=== PATIENT | male | born 1960 | race Caucasian/White ===

== ENCOUNTER 2023-08-23 08:42 | Day surgery (SDC) | payer OTHER, SELFPAY ==
[2023-08-23 09:14] VITALS: BP 122/62; PULSE 62; RESP 16; TEMP 36.5; O2SAT 99
[2023-08-23] MEDS: Tropicam./Phenyleph. (1/2.5%) 5 ML BTL OD ×3 (09:26→09:36)
--- NOTE | 2023-08-23 09:29 | W.ANESPRE ---
General Info Date of Service Date Performed: 08/23/23 Height: 6 ft Weight: 90.8 kg Body Mass Index (BMI): 27.1 Surgical Procedure: Operation Date: 08/23/23 11:40 Proposed Procedure Side Surgeon p Cataract Extraction with IOL Implant Right Joaquín Erickson MD Meds Allergies and Home Medications Allergies Allergy/AdvReac Type Severity Reaction Status Date / Time No Known Allergies Allergy Unverified 08/22/23 15:25 Home Medication Medication Instructions Recorded albuterol sulfate 90 mcg/actuation 2 puff inhalation DIRECTED 08/22/23 aerosol inhaler atorvastatin 40 mg tablet 40 mg PO DAILY 08/22/23 buspirone 15 mg tablet 15 mg PO TID 08/22/23 cyanocobalamin (vitamin B-12) 1,000 mcg PO DAILY 08/22/23 1,000 mcg tablet fluoxetine 40 mg capsule 40 mg PO DAILY 08/22/23 trazodone 100 mg tablet 100 mg PO HS 08/22/23 Current Visit Medications: Current Medications Generic Name Dose Route Start Last Admin Trade Name Freq PRN Reason Stop Dose Admin Acetaminophen 1,000 mg 08/23/23 06:00 Acetaminophen 500 Mg Tab PO 09/22/23 05:59 Q4H PRN PRN Balanced Salt Solution 500 ml 08/23/23 06:00 Balanced Salt Soln.-Plus 500 Ml Bag OP 09/22/23 05:59 DIRECTED LAKEISHA Miscellaneous Medication 0 ml 08/23/23 06:00 Prednisolone 1%, Moxifloxacin 0.5%, Nepafenac 0.1% 5ml Btl OD 09/22/23 05:59 DIRECTED LAKEISHA Miscellaneous Medication 0 ml 08/23/23 06:00 Tropicam./Phenyleph. (1/2.5%) 5 Ml Btl OD 09/22/23 05:59 DIRECTED LAKEISHA Tetracaine HCl 0 ml 08/23/23 06:00 Tetracaine 0.5% 4 Ml Btl OD 09/22/23 05:59 DIRECTED LAKEISHA PFSH Active Problems Active Problems: Problem Status Onset Code Nuclear age-related cataract, right eye H25.11 Cortical age-related cataract, right eye H25.011 Medical History Medical History Anxiety Depression Insomnia Surgical History Surgical History (Updated 08/23/23 @ 09:08 by Orion Reich) History of back surgery Hx of foot surgery Hx of tonsillectomy Tobacco Smoking/Tobacco Use Status: Never Alcohol Alcohol Intake: current Alcohol intake frequency: holidays/special occasions only Substance Use Substance use: Daily Substance use type: marijuana Vital Signs and Lab Results Vital Signs Most Recent Vital Signs in EMR: Most Recent Vital Signs Temp Pulse Resp BP Pulse Ox 36.5 C 62 16 122/62 99 08/23/23 09:14 08/23/23 09:14 08/23/23 09:14 08/23/23 09:14 08/23/23 09:14 Lab Results Blood Type / Crossmatch: No Data to Display Complete Blood Count: No Data to Display Complete Metabolic Panel: No Data to Display Liver Function Panel: No Data to Display Coagulation Panel: No Data to Display Cardiac Panel: No Data to Display Arterial Blood Gas: No Data to Display Venous Blood Gas: No Data to Display Pancreas Panel: No Data to Display Thyroid Panel: No Data to Display Infectious Disease: No Data to Display Blood Cultures: No Data to Display Toxicology Panel: No Data to Display Anesthesia Assessment and Plan Anesthesia History Personal History: No History of Anesthesia Complications Family History: No Family History of Anesthesia Complications Exercise Tolerance Exercise Tolerance: Metabolic Equivalents>4 Pertinent Negatives Pertinent Negatives: No Symptoms of GERD, No Major Cardiovascular Symptoms or Complaints and No Major Pulmonary Symptoms or Complaints Cardiac & Pulmonary Exam Cardiac Exam: Normal S1/S2 Heart Sounds Pulmonary Exam: Clear Bilateral Breath Sounds Implantable Cardiac Device Does patient have a Pacemaker or an ICD?: No Airway Exam Known Difficult Airway: No Mallampati Class: 1 Mouth Opening: Normal (> 3cm) Thyromental Distance: Greater than 3 cm Neck Range of Motion: Full ROM Neck Circumference: Normal Teeth Condition: Normal Dentition ASA Classification ASA Score: ASA 2 Emergency Case?: No NPO Status NPO Status: NPO Clears >2 hours, Solids >8 hours Anesthesia Plan Resuscitation Status: Full Code Anesthesia Technique: MAC Anesthesia Airway Planned: Natural Airway Monitors Used: Standard Monitors
[2023-08-23 09:48] VITALS: BMI 27.1
--- NOTE | 2023-08-23 10:27 | ROE_ITS ---
Date of service: 08/23/23 Time of Service: 11:10 Operative Note Operative Note DATE OF PROCEDURE: 08/23/23 PRE-OP DIAGNOSIS: Nuclear/cortical cataract, right eye With the rule astigmatism, right eye POST-OP DIAGNOSIS: same PROCEDURE: Cataract extraction using phacoemulsification with toric intraocular lens implant, right eye SURGEON: Joaquín Erickson Refer to Anesthesia Record PATHOLOGY: none sent COMPLICATIONS: None Patient was transported to: same day Patient's condition: stable Implants: Eben and Eben Vision Tecnis Eyhance Toric Intraocular Lens Indications: Progressive decreased vision due to cataract, right eye, with corneal astigmatism Procedure Description: [] CATARACT SURGERY OPERATIVE REPORT PREOPERATIVE DIAGNOSIS: Nuclear/cortical cataract, right eye With the rule astigmatism, right eye POSTOPERATIVE DIAGNOSIS: Same OPERATION: Cataract extraction using phacoemulsification with posterior chamber toric intraocular lens implant, right eye. IOL: IOL Senior Database Programmer/Model: Eben and Eben Vision Tecnis Eyhance Toric [id number] IOL Power: + 20.5 diopters sphere, + 3.75 cylinder IOL Serial Number: [id number] Optic Diameter: 6.0mm Haptic/Overall Diameter: 13.00mm PHACO INFO: Miguel CytoValeurion Vision System with OZil and Active Fluidics Cumulative Dispersed Energy (CDE): 3.17 seconds SURGEON: Joaquín Erickson MD, CATA ANESTHESIA: Monitored Anesthesia Care (MAC), with local sub-tenon's anesthetic infiltration COMPLICATIONS: None SPECIMENS: None INDICATIONS FOR PROCEDURE: The patient is a 63-year-old male with history of with the rule astigmatism who has developed a significant nuclear/cortical cataract in the right eye. He jose miguel ired cataract surgery and attempt to improve and maximize his vision. The option of cataract surgery was offered to the patient and he wished to proceed. See office notes for detailed information. PROCEDURE: The correct surgical eye was identified and marked as the right eye and the pupil was dilated in the preoperative area using mydriatics and cycloplegics. The dilated pupil size was 7.0 mm. With the patient in the seated position, topical anesthetic was applied and a surgical marker was used to doris the limbus at 6:00. A Surgilum Robomarker was then used to doris the 0/180 degree reference axis. The patient elected to proceed without oral sedation. The patient was brought to the operating room where cardiopulmonary monitoring was instituted and surgical time-out was performed, confirming the correct operative eye and IOL power. Topical anesthesia was administered and ophthalmic povidone-iodine 5% was instilled into the conjunctival fornices. Lidocaine gel was applied to the cornea and the beth-ocular area was prepped with Betadine 10% solution and draped in the usual sterile fashion for intraocular surgery, including an aperture drape. A Tegaderm transparent film dressing was cut in half and used to cover the lashes and lid margins. Care was taken to sequester the lashes and lid margins under the Tegaderm dressing. A lid speculum was placed between the lids of the operative eye and the Abundio-Shane operating microscope was maneuvered into position. Jossie scissors were then used to make a conjunctival buttonhole approximately 6mm posterior to the limbus in the inferonasal quadrant. Blunt dissection was carried out to expose bare sclera, and a blunt-tipped sub-tenon?s anesthesia cannula was introduced and passed posteriorly along the globe where non- preserved plain lidocaine was injected into posterior sub-Tenon?s space. A corneal ring gauge and axis marker were then used to doris the 174 degree position for the main phaco incision.and the 83/263 degree axis for alignment of the toric IOL. A sideport knife was used to make a paracentesis port at the 7:00 postion and VisionBlue was injected into the anterior chamber and allowed to sit for 20 seconds. Intraocular phenylephrine/lidocaine was injected into the anterior chamber. The anterior chamber was filled with viscoelastic.. A keratome knife was used to create a half-thickness groove at the limbus and then to construct a three-plane near-clear corneal tunnel extending 2.0mm into clear cornea at the 174 degree axis. . A flap was raised on the anterior capsule and capsulorhexis forceps were used to complete a continuous curvilinear capsulorhexis of 5.0 mm. The patient had continuous dramatic eye movements, the eye had to be fixated with a second pair of forceps in order to perform the capsulorrhexis safely. Balanced salt solution was then used to perform cortical cleaving hydrodissection and nuclear hydrodelineation until the lens could be freely rotated within the capsular bag. The lens nucleus was then disassembled and removed within the capsular bag and iris plane using phacoemulsification. Residual cortical material was removed using the 45-degree angled silicone I/A tip with 0.3mm port. The posterior capsule was carefully polished to remove as much residual lens epithelial cells as safely possible. The capsular bag was then inflated and the anterior chamber deepened with viscoelastic. The lens implant described above was inserted into the capsular bag using the Eben and Joberator pre-loaded injector. A Kuglen hook was used to dial the IOL into position, about 10 degrees counterclockwise of its final alignment. Residual viscoelastic was then removed first from posterior to the IOL, then from the anterior chamber using the I/A handpiece. The I/A handpiece was then used to dial the IOL to the target axis. The lens implant was noted to center nicely within the capsular bag, with the toric IOL yadav aligned at the 83/263 degree axis. The incisions were stromally hydrated, and the anterior chamber was reformed using BSS. Then 0.5cc of moxifloxacin 1.0mg/ml were injected into the capsular bag and anterior chamber. The incisions were checked with a Weck spear and found to be secure. Several drops of ophthalmic povidone-iodine 5% were then applied to the eye followed by two drops of Imprimis combination gatifloxacin/dexamethasone solution. The drapes were removed and a clear plastic protective eye shield was placed over the eye. The patient was then returned to Same Day Surgery in stable condition.
[2023-08-23] MEDS: Tetracaine 0.5% 4 ML BTL OD (10:41)
[2023-08-23] MEDS: Balanced Salt Soln.-PLUS 500 ML BAG OP (10:41)
[2023-08-23] MEDS: Lidocaine 1% Pres-Free 5 ML VIAL (10:42)
[2023-08-23] MEDS: Povidone-Iodine Ophth 30 ML BTL (10:43)
[2023-08-23] MEDS: Phenylephrine/Lidocaine (15/10) MG/ML 1 ML VIAL (10:43)
[2023-08-23] MEDS: Duovisc Viscoelastic System EACH 1 EACH (10:43)
[2023-08-23] MEDS: Trypan Blue 0.06% 0.5 ML SYR (10:44)
[2023-08-23 11:06] VITALS: BP 123/95; PULSE 56; RESP 18; TEMP 36.6; O2SAT 99
--- NOTE | 2023-08-23 11:42 | W.ANESPOSTOP ---
Postoperative Evaluation Date, Time and Location Date Performed: 08/23/23 Time Performed: 11:20 Patient Location: Day Surgery Unit Vital Signs Most Recent Imported Vital Signs: Most Recent Vital Signs Temp Pulse Resp BP Pulse Ox 36.6 C 56 L 18 123/95 H 99 08/23/23 11:06 08/23/23 11:06 08/23/23 11:06 08/23/23 11:06 08/23/23 11:06 Pain Score Most Recent Pain Score: Most Recent Pain Score Pain Level 0 08/23/23 11:06 Assessment Mental Status: Awake (Alert & Oriented to Patient Baseline) Airway and Respiratory Function: Patent airway with normal (patient baseline) respiratory exam Cardiovascular Function: Hemodynamically Stable Hydration Status: Adequately Hydrated Nausea & Vomiting: No Nausea or Vomiting Pain: Pt. Denies Any Pain Peripheral Nerve Block: Patient did not receive a nerve block
== END 2023-08-23 11:25 | disposition home or self-care (01) ==
PROVIDERS: Visit Provider Ophthalmology
PROC: (CPT 66984; principal; 2023-08-23 11:30)
DX: H25.11 Age-related nuclear cataract, right eye (principal); H25.011 Cortical age-related cataract, right eye
CPT/HCPCS: 66984; V2632

== ENCOUNTER 2023-09-06 08:48 | Day surgery (SDC) | payer OTHER, SELFPAY ==
[2023-09-06] MEDS: Tropicam./Phenyleph. (1/2.5%) 5 ML BTL OS ×3 (09:00→09:15)
[2023-09-06 09:03] VITALS: BP 122/73; PULSE 70; RESP 16; TEMP 36.6; O2SAT 98
--- NOTE | 2023-09-06 09:19 | W.ANESPRE ---
General Info Date of Service Date Performed: 09/06/23 Height: 6 ft Weight: 92.7 kg Body Mass Index (BMI): 27.7 Surgical Procedure: Operation Date: 09/06/23 11:40 Proposed Procedure Side Surgeon p Cataract Extraction with IOL Implant Left Joaquín Erickson MD Meds Allergies and Home Medications Allergies Allergy/AdvReac Type Severity Reaction Status Date / Time No Known Allergies Allergy Unverified 09/06/23 09:00 Home Medication Medication Instructions Recorded albuterol sulfate 90 mcg/actuation 2 puff inhalation DIRECTED 08/22/23 aerosol inhaler atorvastatin 40 mg tablet 40 mg PO DAILY 08/22/23 buspirone 15 mg tablet 15 mg PO TID 08/22/23 cyanocobalamin (vitamin B-12) 1,000 mcg PO DAILY 08/22/23 1,000 mcg tablet fluoxetine 40 mg capsule 40 mg PO DAILY 08/22/23 trazodone 100 mg tablet 100 mg PO HS 08/22/23 Current Visit Medications: Current Medications Generic Name Dose Route Start Last Admin Trade Name Freq PRN Reason Stop Dose Admin Acetaminophen 1,000 mg 09/06/23 06:00 Acetaminophen 500 Mg Tab PO 10/06/23 05:59 Q4H PRN PRN Balanced Salt Solution 500 ml 09/06/23 06:00 Balanced Salt Soln.-Plus 500 Ml Bag OP 10/06/23 05:59 DIRECTED LAKEISHA Miscellaneous Medication 0 ml 09/06/23 06:00 Prednisolone 1%, Moxifloxacin 0.5%, Nepafenac 0.1% 5ml Btl OS 10/06/23 05:59 DIRECTED LAKEISHA Miscellaneous Medication 0 ml 09/06/23 06:00 09/06/23 09:15 Tropicam./Phenyleph. (1/2.5%) 5 Ml Btl OS 10/06/23 05:59 1 drp DIRECTED LAKEISHA Administration Tetracaine HCl 0 ml 09/06/23 06:00 Tetracaine 0.5% 4 Ml Btl OS 10/06/23 05:59 DIRECTED LAKEISHA PFSH Active Problems Active Problems: Problem Status Onset Code Cortical age-related cataract, left eye H25.012 Nuclear age-related cataract, left eye H25.12 Cortical age-related cataract, right eye H25.011 Nuclear age-related cataract, right eye H25.11 Medical History Medical History Insomnia Depression Anxiety Surgical History Surgical History Hx of tonsillectomy Hx of foot surgery History of back surgery Tobacco Smoking/Tobacco Use Status: Never Alcohol Alcohol Intake: current Alcohol intake frequency: holidays/special occasions only Substance Use Substance use: Daily Substance use type: marijuana Vital Signs and Lab Results Vital Signs Most Recent Vital Signs in EMR: Most Recent Vital Signs Temp Pulse Resp BP Pulse Ox 36.6 C 70 16 122/73 98 09/06/23 09:03 09/06/23 09:03 09/06/23 09:03 09/06/23 09:03 09/06/23 09:03 Lab Results Blood Type / Crossmatch: No Data to Display Complete Blood Count: No Data to Display Complete Metabolic Panel: No Data to Display Liver Function Panel: No Data to Display Coagulation Panel: No Data to Display Cardiac Panel: No Data to Display Arterial Blood Gas: No Data to Display Venous Blood Gas: No Data to Display Pancreas Panel: No Data to Display Thyroid Panel: No Data to Display Infectious Disease: No Data to Display Blood Cultures: No Data to Display Toxicology Panel: No Data to Display Anesthesia Assessment and Plan Anesthesia History Personal History: No History of Anesthesia Complications Family History: No Family History of Anesthesia Complications Exercise Tolerance Exercise Tolerance: Metabolic Equivalents>4 Pertinent Negatives Pertinent Negatives: No Major Cardiovascular Symptoms or Complaints and No Major Pulmonary Symptoms or Complaints Cardiac & Pulmonary Exam Cardiac Exam: Normal S1/S2 Heart Sounds Pulmonary Exam: Clear Bilateral Breath Sounds Implantable Cardiac Device Does patient have a Pacemaker or an ICD?: No Airway Exam Known Difficult Airway: No Mallampati Class: 1 Mouth Opening: Normal (> 3cm) Thyromental Distance: Greater than 3 cm Neck Range of Motion: Full ROM Neck Circumference: Normal Teeth Condition: Normal Dentition ASA Classification ASA Score: ASA 2 Emergency Case?: No NPO Status NPO Status: NPO Clears >2 hours, Solids >8 hours Anesthesia Plan Resuscitation Status: Full Code Anesthesia Technique: MAC Anesthesia Airway Planned: Natural Airway Monitors Used: Standard Monitors
[2023-09-06 09:20] VITALS: BMI 27.7
[2023-09-06] MEDS: Balanced Salt Soln.-PLUS 500 ML BAG OP (10:20)
[2023-09-06] MEDS: Duovisc Viscoelastic System EACH 1 EACH (10:21)
[2023-09-06] MEDS: Tetracaine 0.5% 4 ML BTL OS (10:21)
[2023-09-06] MEDS: Lidocaine 1% Pres-Free 5 ML VIAL (10:22)
[2023-09-06] MEDS: Phenylephrine/Lidocaine (15/10) MG/ML 1 ML VIAL (10:23)
[2023-09-06] MEDS: Povidone-Iodine Ophth 30 ML BTL (10:23)
[2023-09-06] MEDS: Trypan Blue 0.06% 0.5 ML SYR (10:24)
--- NOTE | 2023-09-06 10:48 | W.PM.DSUDISC ---
Date of service: 09/06/23 Time of Service: 10:48 Discharge Plan Disposition Patient Disposition: Home Discharge Details Attending Provider: Joaquín Erickson Home Meds and New Rx's Prescriptions: No Action fluoxetine 40 mg capsule 40 mg PO DAILY Patient Comments: TAKE TWO CAPSULES BY MOUTH EVERY DAY atorvastatin 40 mg Tablet 40 mg PO DAILY cyanocobalamin (vitamin B-12) 1,000 mcg Tablet 1,000 mcg PO DAILY trazodone 100 mg Tablet 100 mg PO HS albuterol sulfate 90 mcg/actuation Hfa Aerosol Inhaler 2 puff INHALATION DIRECTED buspirone 15 mg Tablet 15 mg PO TID Discharge Instructions Stand Alone Forms: Post-op Topical Cataract, Hamilton Ramos (DSU) Discharge Orders Discharge Orders: Discharge Order (Routine); Ordered 09/06/23 Ordered By: Joaquín Erickson DS: Diagnosis Discharge Diagnosis (1) Cortical age-related cataract, left eye: Status: Resolved (2) Nuclear age-related cataract, left eye: Status: Resolved
--- NOTE | 2023-09-06 10:49 | ROE_ITS ---
Date of service: 09/06/23 Time of Service: 10:49 Operative Note Operative Note DATE OF PROCEDURE: 09/06/23 PRE-OP DIAGNOSIS: Nuclear/cortical cataract, left eye With the rule corneal astigmatism, left eye POST-OP DIAGNOSIS: same PROCEDURE: Cataract extraction using phacoemulsification with toric intraocular lens implant, left eye SURGEON: Joaquín Erickson ANESTHESIA TYPE: Local By Surgeon and MAC Refer to Anesthesia Record PATHOLOGY: none sent COMPLICATIONS: None Patient was transported to: same day Patient's condition: stable Implants: Eben and Eben Vision Tecnis Eyhance Toric Intraocular Lens Indications: Progressive decreased vision due to cataract, left eye, with corneal astigmatism Procedure Description: CATARACT SURGERY OPERATIVE REPORT PREOPERATIVE DIAGNOSIS: Nuclear/cortical cataract, left eye With the rule corneal astigmatism, left eye POSTOPERATIVE DIAGNOSIS: Same OPERATION: Cataract extraction using phacoemulsification with posterior chamber toric intraocular lens implant, left eye. IOL: IOL Biofuels Plant Manager/Model: Eben & Eben Vision Tecnis Eyhance Toric [id number] IOL Power: + 19.5 diopters sphere, 3.75 diopters cylinder IOL Serial Number: [id number] Optic Diameter: 6.0mm Haptic/Overall Diameter: 13.00mm PHACO INFO: Miguel Centurion Vision System with OZil and Active Fluidics Cumulative Dispersed Energy (CDE): 3.93 seconds SURGEON: Joaquín Erickson MD, CATA ANESTHESIA: Monitored Anesthesia Care (MAC), with local sub-tenon's anesthetic infiltration COMPLICATIONS: None SPECIMENS: None INDICATIONS FOR PROCEDURE: The patient is a 63-year-old male with history of with the rule corneal a stigma tism who has developed significant bilateral nuclear/cortical cataract. He has already undergone cataract surgery in the right eye with a toric intraocular lens implant and is doing well postoperatively. He now presents for cataract surgery in the left eye. See office notes for detailed information. PROCEDURE: The correct surgical eye was identified and marked as the left eye and the pupil was dilated in the preoperative area using mydriatics and cycloplegics. The dilated pupil size was 7.0 mm. With the patient in the seated position, topical anesthetic was applied and a surgical marker was used to doris the limbus at 6:00. A Surgilum Robomarker was then used to doris the 0/180 degree reference axis. The patient elected to proceed without oral sedation. The patient was brought to the operating room where cardiopulmonary monitoring was instituted and surgical time-out was performed, confirming the correct operative eye and IOL power. Topical anesthesia was administered and ophthalmic povidone-iodine 5% was instilled into the conjunctival fornices. The beth-ocular area was prepped with Betadine 10% solution and draped in the usual sterile fashion for intraocular surgery, including an aperture drape. A Tegaderm transparent film dressing was cut in half and used to cover the lashes and lid margins. Care was taken to sequester the lashes and lid margins under the Tegaderm dressing. A lid speculum was placed between the lids of the operative eye and the Miguel LuxOR Revaliat operating microscope was maneuvered into position. Jossie scissors were then used to make a conjunctival buttonhole approximately 6mm posterior to the limbus in the inferonasal quadrant. Blunt dissection was carried out to expose bare sclera, and a blunt-tipped sub-tenon?s anesthesia cannula was introduced and passed posteriorly along the globe where non- preserved plain lidocaine was injected into posterior sub-Tenon?s space. A corneal ring gauge and axis marker were then used to doris the 002 degree position for the main phaco incision, and the 92/272 degree axis for alignment of the toric IOL. A sideport knife was used to make a paracentesis port at the 92 degree axis. VisionBlue was injected into the anterior chamber allowed to sit for 20 seconds. Intraocular phenylephrine/lidocaine was injected into the anterior chamber. The anterior chamber was then filled with viscoelastic. A keratome knife was used to create a half-thickness groove at the limbus and then to construct a three-plane near-clear corneal tunnel extending 2.0mm into clear cornea at the 002 degree axis. . A flap was raised on the anterior capsule and capsulorhexis forceps were used to complete a continuous curvilinear capsulorhexis of 5.0 mm. The eye had to be fixated with a second instrument due to wildly unpredictable large amplitude intermittent eye movement. Balanced salt solution was then used to perform cortical cleaving hydrodissection and nuclear hydrodelineation until the lens could be freely rotated within the capsular bag. The lens nucleus was then disassembled and removed within the capsular bag and iris plane using phacoemulsification. Residual cortical material was removed using the irrigation/aspiration handpiece. The posterior capsule was carefully polished to remove as much residual lens epithelial cells as safely possible. The capsular bag was then inflated and the anterior chamber deepened with viscoelastic. The lens implant described above was inserted into the capsular bag using the [employer] Simplicity pre-loaded injector. . A Kuglen hook was used to dial the IOL into position, about 10 degrees counterclockwise of its final alignment. Residual viscoelastic was then removed first from posterior to the IOL, then from the anterior chamber using the I/A handpiece. The I/A handpiece was then used to dial the IOL to the target axis. The lens implant was noted to center nicely within the capsular bag, with the toric IOL yadav aligned at the 92/272 degree axis. The incisions were stromally hydrated, and the anterior chamber was reformed using BSS. Then 0.5cc of moxifloxacin 1.0mg/ml were injected into the capsular bag and anterior chamber. The incisions were checked with a Weck spear and found to be secure. Several drops of ophthalmic povidone-iodine 5% were then applied to the eye followed by two drops of Imprimis combination prednisolone/moxifloxacin/nepafenac solution. The drapes were removed and a clear plastic protective eye shield was placed over the eye. The patient was then returned to Same Day Surgery in stable condition.
[2023-09-06 10:50] VITALS: BP 128/82; PULSE 68; RESP 16; TEMP 37.1; O2SAT 97
--- NOTE | 2023-09-06 11:24 | W.ANESPOSTOP ---
Postoperative Evaluation Date, Time and Location Date Performed: 09/06/23 Time Performed: 10:56 Patient Location: Day Surgery Unit Vital Signs Most Recent Imported Vital Signs: Most Recent Vital Signs Temp Pulse Resp BP Pulse Ox 37.1 C 68 16 128/82 97 09/06/23 10:50 09/06/23 10:50 09/06/23 10:50 09/06/23 10:50 09/06/23 10:50 Pain Score Most Recent Pain Score: Most Recent Pain Score Pain Level 0 09/06/23 10:50 Assessment Mental Status: Awake (Alert & Oriented to Patient Baseline) Airway and Respiratory Function: Patent airway with normal (patient baseline) respiratory exam Cardiovascular Function: Hemodynamically Stable Hydration Status: Adequately Hydrated Nausea & Vomiting: No Nausea or Vomiting Pain: Pt. Denies Any Pain Peripheral Nerve Block: Patient did not receive a nerve block
== END 2023-09-06 11:00 | disposition home or self-care (01) ==
LOC: SUR 08:48
PROVIDERS: Visit Provider Ophthalmology
PROC: (CPT 66984; principal; 2023-09-06 11:30)
DX: H25.012 Cortical age-related cataract, left eye (principal); H25.12 Age-related nuclear cataract, left eye; Z98.41 Cataract extraction status, right eye
CPT/HCPCS: 66984; 00123; V2632

== ENCOUNTER 2024-02-26 09:57 | Emergency (ER) | payer OTHER, SELFPAY ==
[2024-02-26 10:03] VITALS: BP 156/81; PULSE 75; RESP 20; TEMP 36.1; O2SAT 98
[2024-02-26 10:11] VITALS: BP 156/81; PULSE 75; RESP 20; TEMP 36.1; O2SAT 98
--- NOTE | 2024-02-26 10:15 | DI.RAD_ITS ---
Exam(s) XR CHEST 2V PA LATERAL EXAM: XR CHEST 2V PA LATERAL CLINICAL HISTORY: shortness ofbreath, fever. TECHNIQUE: 2D digital imaging was performed. COMPARISON: No exams were available for comparison FINDINGS: 2 views: Heart size is normal. The mediastinum is not widened. Lungs are clear. No infiltrates nor pleural effusions. IMPRESSION: No acute pulmonary findings. DATA REPOSITORY: RADIATION DOSE DELIVERED:
--- NOTE | 2024-02-26 10:15 | RT.EKG_ITS ---
APPROVED REPORT Exam: Resting ECG Reason for Exam: shortness of breath Patient Location: E HR:74 bpm ECG Measurements Heart Rate 74 AXIS [place] 169 P 55 QRSd 79 QRS 29 QT 365 T 30 QTc 405 Conclusion Sinus rhythm...normal P axis, V-rate 60- 99 Narrow complex normal sinus rhythm at a rate of 74. Normal axis. Intervals within normal limits. N o acute ST segment abnormalities. No T wave inversions. No prior for comparison. No acute injury p attern.
--- NOTE | 2024-02-26 10:45 | ED.GENADUL_ITS ---
Discharge Plan Disposition Patient Disposition: Home Condition: Stable Discharge Details Clinical Impression: Pneumonia Primary Care Provider: Unknown,Unknown ED Provider: Megan Fleming Home Meds and New Rx's Prescriptions: New prednisone 20 mg tablet 40 mg PO ONCE Qty: 10 0RF doxycycline hyclate 100 mg capsule 100 mg PO BID Qty: 14 0RF Continued clonidine HCl See Rx Instructions PO DAILY Rx Instructions: take 1 pill orally daily; methylphenidate HCl [Concerta] 54 mg tablet extended release 24hr 54 mg PO DAILY fluoxetine 40 mg capsule 40 mg PO DAILY Patient Comments: TAKE TWO CAPSULES BY MOUTH EVERY DAY atorvastatin 40 mg Tablet 40 mg PO DAILY cyanocobalamin (vitamin B-12) 1,000 mcg Tablet 1,000 mcg PO DAILY trazodone 100 mg Tablet 100 mg PO HS albuterol sulfate 90 mcg/actuation Hfa Aerosol Inhaler 2 puff INHALATION DIRECTED buspirone 15 mg Tablet 15 mg PO TID Discharge Instructions Additional Instructions: Use the Combivent or the albuterol 2 puffs every 4-6 hours Take the prednisone, your next dose will be tomorrow open Take the doxycycline your next dose will be before bedtime, yogurt daily while on the antibiotic Increase fluids Try to eat small frequent meals or have juice and macie jason, bananas, [place] instant breakfast Please return earlier should you have new or worsening complaints Recommendation for recheck with primary care physician in 48 hours Referrals: Micah Nickerson MD [ [facility] STAFF PHYSICIAN] - 2 days HPI General Date/Time Provider Initiated Documentation: 02/26/24 10:00 . HPI Narrative: 62-year-old male presents with report of shortness of breath and fevers, 101 consistently for the past week. Denies any chest pain. States he feels weak and tired. States has had intermittent chills. Took a gram of Tylenol prior to arrival. Reports cough which is worsening. Denies any calf pain or swelling. Denies history of similar symptoms or sick contacts. History of hyperlipidemia but denies any other medical problems. Has had intermittent nausea with 1 episode of posttussis vomiting yesterday. Related Data Home Medications Medication Instructions Recorded Confirmed albuterol sulfate 90 mcg/actuation 2 puff inhalation DIRECTED 08/22/23 02/26/24 aerosol inhaler atorvastatin 40 mg tablet 40 mg PO DAILY 08/22/23 02/26/24 buspirone 15 mg tablet 15 mg PO TID 08/22/23 02/26/24 cyanocobalamin (vitamin B-12) 1,000 mcg PO DAILY 08/22/23 02/26/24 1,000 mcg tablet fluoxetine 40 mg capsule 40 mg PO DAILY 08/22/23 02/26/24 trazodone 100 mg tablet 100 mg PO HS 08/22/23 02/26/24 clonidine HCl See Rx Instructions PO DAILY 02/26/24 02/26/24 doxycycline hyclate 100 mg capsule 100 mg PO BID #14 caps 02/26/24 methylphenidate HCl 54 mg 54 mg PO DAILY 02/26/24 02/26/24 tablet,extended release 24 hr (Concerta) prednisone 20 mg tablet 40 mg (2 x 20 mg) PO ONCE #10 tabs 02/26/24 Previous Rx's Medication Instructions Recorded doxycycline hyclate 100 mg capsule 100 mg PO BID #14 caps 02/26/24 prednisone 20 mg tablet 40 mg (2 x 20 mg) PO ONCE #10 tabs 02/26/24 Allergies Allergy/AdvReac Type Severity Reaction Status Date / Time No Known Allergies Allergy Unverified 02/26/24 10:06 General Stated Complaint: RespSymp JOEY: 3 Course Vital Signs Vital signs: Vital Signs Temperature 36.1 C L 02/26/24 10:03 Pulse 75 02/26/24 10:03 Respiratory Rate 20 02/26/24 10:03 Blood Pressure 156/81 H 02/26/24 10:03 Pulse Oximetry 98 02/26/24 10:03 Temperature 36.1 C L 02/26/24 10:11 Pulse 75 02/26/24 10:11 Respiratory Rate 20 02/26/24 10:11 Respiratory Effort Normal 02/26/24 10:11 Blood Pressure 156/81 H 02/26/24 10:11 Blood Pressure Position Sitting 02/26/24 10:11 Pulse Oximetry 98 02/26/24 10:11 Oxygen Delivery Method Room Air 02/26/24 10:11 Oxygen Flow Rate 0 02/26/24 10:11 Pain Level 7 02/26/24 10:11 Comment this is baseline to pt 02/26/24 10:11 Lab/Test Results Lab/Test Results: 02/26/24 10:25 Blood Blood Culture - Pending 04/10/24 10:25 Blood Blood Culture - Pending Medical Decision Making 64-year-old male presenting with shortness of breath, wheezing, fever for the past week No history of asthma or COPD Patient is alert and oriented, he has wheezing throughout, no significant respiratory distress, no hypoxia, oxygen 97 to 98% on room air 3 DuoNebs administered, reported symptomatic improvement, wheezing remains although patient is able to ambulate without hypoxia Given prednisone, doxycycline empirically after reviewing chest x-ray which does not show obvious evidence of x-ray of over patient is dehydrated and I have high clinical suspicion for pneumonia will initiate doxycycline, prednisone, Combivent no hypotension appreciated on exam Patient remains afebrile here, given Tylenol for discomfort and 2 L of IV fluids for BUN of 25 likely dehydration induced Low suspicion clinically for pulmonary embolism Recheck in 24 to 48 hours recommended Discharged home with 40 mg of prednisone daily, Combivent every 4 hours with spacer, and doxycycline for 7 days with need for recheck in 24 to 48 hours Return precautions reviewed and patient expressed understanding We talked about admission versus discharge and patient states he feels comfortable with discharge home at this time, given low threshold to return with new or worsening complaints Quality:SDOH Health Related Social Needs: No Data to Display PFSH All Active Problems (Updated 02/26/24 @ 13:33 by JERE Doherty) Pneumonia (Acute) Cortical age-related cataract, right eye (Acute) Nuclear age-related cataract, right eye (Acute) Medical History (Updated 02/26/24 @ 13:33 by JERE Doherty) Insomnia Depression Anxiety Surgical History (Updated 09/06/23 @ 10:49 by Joaquín Erickson MD) Hx of tonsillectomy Hx of foot surgery History of back surgery Social History Smoking/Tobacco Use Status: Never Smoking risk assessment performed?: Yes Alcohol Intake: current Alcohol Intake frequency: holidays/special occasions only Drug use: Daily Substance use type: marijuana Housing: house Additional Social history: unable to assess aldair
[2024-02-26 10:54] LABS: Lactate 1.2 mmol/L (0.6-1.4)
[2024-02-26 10:55] LABS: Abs Immature Grans 0.01 10^3/uL (0.0-0.06); Absolute Basophil Count 0.02 10^3/uL (0.0-0.2); Absolute Eosinophil Count 0.12 10^3/uL (0.0-0.7); Absolute Lymphocyte Count 0.69 10^3/uL (1.2-3.4); Absolute Monocyte Count 0.73 10^3/uL (0.1-0.8); Absolute Neutrophil Count 2.47 10^3/uL (1.2-6.7); Basophils % 0.5; HCT 44.3 % (40.0-50.0); HGB 15.1 g/dL (13.5-17.5); Immature Grans % 0.2; Lymphocytes % 17.1; MCH 32.6 pg (27.0-33.0); MCHC 34.1 % (32.0-36.0); MCV 96 fL (80-95); MPV 8.6 fL (8.0-11.0); Monocytes % 18.1; Neutrophils % 61.1; Platelet Count 142 10^3/uL (130-400); RBC 4.63 10^6/uL (4.36-5.78); RDW 12.3 % (11.8-14.1); RDW-SD 43.8 fL; WBC 4.04 10^3/uL (4.4-10.8)
[2024-02-26 11:15] LABS: ALT 45 U/L (16-63); AST 38 U/L (15-37); Albumin 3.7 g/dL (3.4-5.0); Alkaline Phosphatase 102 U/L (46-116); Anion Gap 9.9 mmol/L (3-11); BUN 25 mg/dL (7-18); Bilirubin, Total 0.4 mg/dL (0.2-1.0); CO2 26.1 mmol/L (21.0-32.0); CREATININE 0.9 mg/dL (0.70-1.30); Calcium 8.6 mg/dL (8.5-10.1); Chloride 107 mmol/L (98-107); Estimated GFR 96.57 (mL/min/1.73m2); Glucose 70 mg/dL (74-106); Potassium 4.5 mmol/L (3.5-5.1); Sodium 143 mmol/L (136-145); Total Protein 7.3 g/dL (6.4-8.2); Troponin I < 50 ng/L (< or =60)
[2024-02-26 11:38] VITALS: O2SAT 98
[2024-02-26] MEDS: Albuterol/Ipratropium 3 ML UPD VIAL UPD ×3 (11:38→12:19)
[2024-02-26 11:39] VITALS: O2SAT 98
[2024-02-26] MEDS: methylPREDNISolone SUCC 125 MG VIAL IVP (11:39)
[2024-02-26] MEDS: Normal Saline 1,000 ML 1000 ML IV (11:39)
[2024-02-26 11:41] LABS: COVID-19 PCR Negative (Negative); Influenza A PCR Negative (Negative); Influenza B PCR Negative (Negative); RSV PCR Negative (Negative)
[2024-02-26 11:45] LABS: Source Nasopharynx
[2024-02-26 12:19] VITALS: PULSE 95; RESP 17; RESP 20; RESP 3; O2SAT 100
[2024-02-26] MEDS: Doxycycline Hyclate 100 MG CAP PO (12:19)
[2024-02-26 12:27] LABS: Bilirubin Negative (Negative); Blood Negative (Negative); Clarity Clear (Clear); Glucose Negative (Negative); Ketones Negative (Negative); Leukocyte Esterase Negative (Negative); Nitrite Negative (Negative); Specific Gravity 1.025 (1.005-1.025); Urobilinogen 0.2 mg/dL (Up to 0.2)
[2024-02-26] MEDS: Lactated Ringers 1,000 ML 1000 ML IV (12:43)
[2024-02-26] MEDS: Ipratropium/Albuterol 4 GM 120 PUFF INH IH (13:52)
[2024-02-26 13:54] VITALS: BP 141/74; PULSE 90; RESP 17; O2SAT 95
[2024-02-26] MEDS: Inhaler, Assist Device 1 EACH MC (13:54)
== END 2024-02-26 14:02 | disposition home or self-care (01) ==
LOC: ER 10:42
PROVIDERS: Emergency Provider Physician Assistant
DX: J18.9 Pneumonia, unspecified organism; E78.5 Hyperlipidemia, unspecified; Z79.899 Other long term (current) drug therapy
CPT/HCPCS: 80053; 87040; 87637; 93005; 94640; 96361; 96374; 99285; 71046; 81003; 83605; 84484; 85025; 93010; 99284; J2919; J3490; J7620

== ENCOUNTER 2024-12-26 11:52 | Emergency (ER) | payer OTHER, SELFPAY ==
[2024-12-26 11:58] VITALS: BP 118/62; PULSE 70; RESP 16; TEMP 36.4; O2SAT 96
--- NOTE | 2024-12-26 12:18 | ED.GENADUL_ITS ---
Discharge Plan Disposition Patient Disposition: Home Condition: Stable Discharge Details Clinical Impression: Viral upper respiratory tract infection Primary Care Provider: [facility] ED Provider: Scarlet Nolasco Home Meds and New Rx's Prescriptions: No Action clonidine HCl See Rx Instructions PO DAILY Rx Instructions: take 1 pill orally daily; methylphenidate HCl [Concerta] 54 mg tablet extended release 24hr 54 mg PO DAILY atorvastatin 40 mg Tablet 40 mg PO DAILY cyanocobalamin (vitamin B-12) 1,000 mcg Tablet 1,000 mcg PO DAILY trazodone 100 mg Tablet 100 mg PO HS albuterol sulfate 90 mcg/actuation Hfa Aerosol Inhaler 2 puff INHALATION DIRECTED buspirone 15 mg Tablet 15 mg PO TID Discharge Instructions Instructions: Viral Upper Respiratory Infection, Adult (DC) Additional Instructions: You were seen in the emergency department today for evaluation of bodyaches, h eadache, fever, and breathing problems concerning for an upper respiratory virus. In our department you do full physical examination performed that was reassuring, and you had an x-ray that did not show any sign of pneumonia. Your viral swab is pending and I will contact you by phone if there are any positive results. You need to follow-up with your primary care provider for reassessment in the next few days and discuss this visit and our workup. Thank you for allowing us to be part of your care. Discharge Data Discharge Date/Time-TO BE ENTERED AT DEPARTURE: 12/26/24 13:26 HPI General Mode of arrival: ambulatory . Date/Time Provider Initiated Documentation: 12/26/24 11:53 . Limitations to Documentation: no limitations . Information obtained by: patient and old records reviewed . HPI Narrative: HPI: This is a 64-year-old male patient with a past medical history significant for PTSD, back injury, hyperlipidemia, presenting for evaluation of 1 week of bodyaches, fever, headaches and shortness of breath. The patient reports that he and his have both been sick, he has been taking Tylenol and ibuprofen as needed for management of pain, last dose 1 hour ago. States that he had a Tmax of 102 at home several days ago, but has felt subjectively feverish each day. Has been drinking water, does have some occasional nausea when he tries to eat a meal. States that he has allover body aches, and a generalized headache. Denies productive cough. Has a history of pneumonia and feels like he is not quite as sick as he has been with these in the past. Exam: Gen: Awake and alert, in no apparent distress HEENT: Non-icteric sclera Neck: Supple Lungs: No apparent respiratory distress, normal respiratory effort. The patient has difficulty taking a deep breath, lung sounds are quiet but clear bilaterally CV: Appears well perfused, heart with regular rate and rhythm Abdomen: Non-distended MSK: Moves 4 extremities without apparent limitation in ROM. No unilateral calf swelling or tenderness, no peripheral edema Skin: Visualized skin without rashes, cyanosis. Neuro: Normal Gait, no obvious focal deficits or facial asymmetry. Speaks in full, clear sentences. Psych: Appropriate for situation. MDM: This is a 64-year-old male patient presenting for evaluation of 1 week of fever, body aches, and shortness of breath. Differential includes but is not limited to viral URI, bronchitis, pneumonia. No history of reactive airway disease nor wheezing to suggest exacerbation, no evidence of fluid overload to suggest pulmonary edema. The patient is maintaining his hydration, and is hemodynamically appropriate and I have a lower concern for metabolic or electrolyte derangement or kidney injury. We will obtain a viral swab and a chest x-ray to better characterize any abnormalities to account for the patient's symptoms. ED Course: X-ray independently interpreted by myself, showing no evidence of pneumonia or other focal abnormalities, viral swab negative. Symptoms remain consistent with a viral upper respiratory infection, and on reassessment patient remains hemodynamically appropriate without development of fever, tachycardia, or hypoxia. At this time, the patient has had a full medical evaluation and is safe for discharge to home. They are hemodynamically stable, ambulatory, and tolerating PO. They are understanding of the follow-up plan and return precautions. They left our facility without incident. Scarlet Nolasco MD Related Data Home Medications ?Medication ?Instructions ?Recorded ?Confirmed albuterol sulfate 90 mcg/actuation 2 puff inhalation DIRECTED 08/22/23 12/26/24 aerosol inhaler atorvastatin 40 mg tablet 40 mg PO DAILY 08/22/23 12/26/24 buspirone 15 mg tablet 15 mg PO TID 08/22/23 12/26/24 cyanocobalamin (vitamin B-12) 1,000 mcg PO DAILY 08/22/23 12/26/24 1,000 mcg tablet trazodone 100 mg tablet 100 mg PO HS 08/22/23 12/26/24 clonidine HCl See Rx Instructions PO DAILY 02/26/24 12/26/24 methylphenidate HCl 54 mg 54 mg PO DAILY 02/26/24 12/26/24 tablet,extended release 24 hr (Concerta) Allergies Allergy/AdvReac Type Severity Reaction Status Date / Time No Known Allergies Allergy Unverified 12/26/24 11:56 General Stated Complaint: RespSymp JOEY: 3 Course Vital Signs Vital signs: Vital Signs Temperature 36.4 C 12/26/24 11:58 Pulse 70 12/26/24 11:58 Respiratory Rate 16 12/26/24 11:58 Blood Pressure 118/62 12/26/24 11:58 Pulse Oximetry 96 12/26/24 11:58 Temperature 36.4 C 12/26/24 11:58 Temperature Source Oral 12/26/24 11:58 Pulse 70 12/26/24 11:58 Respiratory Rate 16 12/26/24 11:58 Blood Pressure 118/62 12/26/24 11:58 Blood Pressure Position Sitting 12/26/24 11:58 Pulse Oximetry 96 12/26/24 11:58 Oxygen Delivery Method Room Air 12/26/24 11:58 Oxygen Flow Rate 0 12/26/24 11:58 Pain Level 8 12/26/24 11:58 Medical Decision Making Quality:SDOH Health Related Social Needs: No Data to Display PFSH All Active Problems (Updated 12/26/24 @ 13:15 by Scarlet Nolasco MD) Viral upper respiratory tract infection (Acute) Cortical age-related cataract, right eye (Acute) Nuclear age-related cataract, right eye (Acute) Medical History (Updated 12/26/24 @ 13:15 by Scarlet Nolasco MD) Insomnia Depression Anxiety Surgical History (Updated 09/06/23 @ 10:49 by Joaquín Erickson MD) Hx of tonsillectomy Hx of foot surgery History of back surgery Social History Smoking/Tobacco Use Status: Never Smoking risk assessment performed?: Yes Alcohol Intake: current Alcohol Intake frequency: holidays/special occasions only Drug use: Daily Substance use type: marijuana Housing: house Do you feel safe at home: Yes Do you feel safe in your relationship?: Yes
--- NOTE | 2024-12-26 12:53 | DI.RAD_ITS ---
Exam(s) XR CHEST 2V PA LATERAL EXAM: XR CHEST 2V PA LATERAL CLINICAL HISTORY: 1 week fevers, cough, body aches TECHNIQUE: 2D digital imaging was performed. Two views. COMPARISON: CR XR CHEST 2V PA LATERAL from 02/26/2024 FINDINGS: HEART: Normal size. Aorta: Not dilated. PULMONARY VASCULATURE: Normal. MEDIASTINUM: Unremarkable. LUNGS: Clear. PLEURAL SPACE: No pleural effusion or pneumothorax. BONE:Unremarkable for age. SOFT TISSUES: Unremarkable. IMPRESSION: No acute abnormality. DATA REPOSITORY: RADIATION DOSE DELIVERED:
--- NOTE | 2024-12-26 13:12 | DI.VRAD_ITS ---
PROCEDURE INFORMATION: Exam: XR Chest Exam date and time: 12/26/2024 12:46 PM Age: 64 years old Clinical indication: Cough and fever and other: 1 week fever, cough, body aches TECHNIQUE: Imaging protocol: Radiologic exam of the chest. Views: 2 views. COMPARISON: CR XR CHEST 2V PA LATERAL 02/26/2024 11:13 AM FINDINGS: Lungs: Unremarkable. No consolidation. Pleural spaces: Unremarkable. No pleural effusion. No pneumothorax. Heart/Mediastinum: Unremarkable. No cardiomegaly. Bones/joints: Unremarkable. IMPRESSION: No acute findings. Dictated and Authenticated by: En Taylor MD. Orderin St. Alfonzo Novak MD
[2024-12-26 13:22] VITALS: PULSE 83; O2SAT 98
[2024-12-26] MEDS: Ondansetron O.D.T. 4 MG TABEF, 3 TABS/BTL PO (13:23)
[2024-12-26 13:25] VITALS: BP 107/72; PULSE 74
[2024-12-26 13:26] VITALS: BP 107/72; PULSE 78; RESP 16; TEMP 36.4; O2SAT 98
[2024-12-26 13:27] VITALS: BP 107/72; PULSE 78; RESP 16; O2SAT 98
[2024-12-26 13:41] LABS: COVID-19 PCR Negative (Negative); Influenza A PCR Negative (Negative); Influenza B PCR Negative (Negative); RSV PCR Negative (Negative)
[2024-12-26 13:42] LABS: Source Nasopharynx
== END 2024-12-26 13:26 | disposition home or self-care (01) ==
LOC: ER 13:24
PROVIDERS: Emergency Provider Emergency Medicine
DX: J06.9 Acute upper respiratory infection, unspecified (principal); B97.89 Other viral agents as the cause of diseases classified elsewhere; E78.5 Hyperlipidemia, unspecified
CPT/HCPCS: 87637; 99284; 71046